=== PATIENT | male | born 1955 | race African-American/Black ===

== ENCOUNTER → 2018-06-28 | Outpatient (CLI) | payer OTHER ==
[~2018-06-28] MED LIST: DAYPRO600 M1 PO; VICODIN 500 MG-1 TAB PO
== END | disposition home or self-care (01) ==
LOC: RAD 11:18
DX: R10.30 Lower abdominal pain, unspecified (principal)

== ENCOUNTER → 2018-08-23 | Outpatient (CLI) | payer OTHER | END | disposition home or self-care (01) | LOC: LAB 11:01 | DX: C61 Malignant neoplasm of prostate (principal) ==

== ENCOUNTER 2018-11-08 09:44 | Emergency (ER) | payer OTHER ==
[~2018-11-08] VITALS: Ht 187.9 cm; Wt 99.8 kg
[2018-11-08 09:45] VITALS: BP 164/100
[2018-11-08 10:44] LABS: BASO # 0.1 10*3/uL (0.0-0.1); BASO % 0.8 % (0.0-1.0); EOS # 0.1 10*3/uL (0.0-0.4); EOS % 1.3 % (1.0-4.0); HEMATOCRIT 44.7 % (42.0-52.0); LYMPH # 2.9 10*3/uL (1.3-4.4); MEAN CELL VOLUME 89.4 fl (80.0-94.0); MEAN CORPUSCULAR HGB CONC 31.3 g/dl (33.0-37.0); MEAN PLATELET VOLUME 9.3 fl (9.6-12.3); MONO # 0.6 10*3/uL (0.1-1.0); MONO % 7.4 % (3.0-9.0); NEUT % 57.2 % (47.0-73.0); PLATELET COUNT AUTOMATED 316 10*3/uL (130-400); RED CELL DISTRI WIDTH 13.8 % (0-14.5); WHITE BLOOD COUNT 8.7 10*3/uL (4.8-10.8)
[2018-11-08 10:48] LABS: ALBUMIN 3.8 gm/dl (3.1-4.5); ALKALINE PHOSPHATASE 69 U/L (45-117); BUN 13 mg/dl (7-24); CHLORIDE 105 mmol/L (98-107); CREATININE 1.02 mg/dL (0.70-1.30); POTASSIUM 4.4 mmol/L (3.5-5.1); SGOT/AST 14 IU/L (3-35); SGPT/ALT 23 U/L (12-78); SODIUM 140 mmol/L (136-145); TOTAL PROTEIN 8.4 gm/dL (6.4-8.2)
[2018-11-08 11:03] LABS: BILIRUBIN NEGATIVE (NEGATIVE); BLOOD NEGATIVE (NEGATIVE); CLARITY CLEAR (CLEAR); COLOR YELLOW (YELLOW); GLUCOSE NEGATIVE (NEGATIVE); KETONE NEGATIVE (NEGATIVE); LEUKO ESTERASE NEGATIVE (NEGATIVE); NITRITE NEGATIVE (NEGATIVE); UROBILINOGEN 0.2 E.U./dl (0.2-1.0)
[2018-11-08 11:23] LABS: RBC 0-2 rbc/hpf (0-2); WBC 0-2 wbc/hpf (0-5)
[2018-11-08] MEDS ORDERED: PERCOCET 5-3251 EACH PO (13:22)
[2019-01-05] MEDS ORDERED: PROSCAR5 M1 PO (15:37)
[2019-01-05] MEDS ORDERED: EFFEXOR XR150 MG PO (15:38)
[2019-01-05] MEDS ORDERED: TAMSULOSIN HCL0.4 MG PO (15:38)
[2019-01-05] MEDS ORDERED: XANAX0.5 MG PO (15:39)
== END 2018-11-08 13:28 | disposition home or self-care (01) ==
LOC: ED 09:44
PROVIDERS: Nurse Practitioner Family
DX: R10.30 Lower abdominal pain, unspecified (principal); R30.9 Painful micturition, unspecified

== ENCOUNTER → 2018-12-06 | Outpatient (CLI) | payer OTHER ==
[~2018-12-06] MED LIST changes: +EFFEXOR XR150 MG PO; +PERCOCET 5-3251 EACH PO; +PROSCAR5 M1 PO; +TAMSULOSIN HCL0.4 MG PO; +XANAX0.5 MG PO
[2018-12-06 12:04] LABS: BASO # 0.1 10*3/uL (0.0-0.1); BASO % 1.1 % (0.0-1.0); EOS # 0.1 10*3/uL (0.0-0.4); EOS % 1.7 % (1.0-4.0); HEMATOCRIT 43.5 % (42.0-52.0); HEMOGLOBIN 13.9 g/dl (14.0-18.0); LYMPH # 3.1 10*3/uL (1.3-4.4); LYMPH % 43.2 % (27.0-41.0); MEAN CELL VOLUME 90.1 fl (80.0-94.0); MEAN CORPUSCULAR HGB 28.8 pg (27.0-31.0); MEAN PLATELET VOLUME 10.4 fl (9.6-12.3); MONO # 0.5 10*3/uL (0.1-1.0); MONO % 6.6 % (3.0-9.0); NEUT # 3.4 10*3/uL (2.3-7.9); NEUT % 47.1 % (47.0-73.0); PLATELET COUNT AUTOMATED 271 10*3/uL (130-400); RED BLOOD COUNT 4.83 10*6/uL (4.50-5.90); WHITE BLOOD COUNT 7.2 10*3/uL (4.8-10.8)
[2018-12-06 12:33] LABS: ALBUMIN 4.2 gm/dl (3.1-4.5); ALKALINE PHOSPHATASE 69 U/L (45-117); BUN 11 mg/dl (7-24); CHLORIDE 106 mmol/L (98-107); CREATININE 1.01 mg/dL (0.70-1.30); SGOT/AST 13 IU/L (3-35); SGPT/ALT 27 U/L (12-78); SODIUM 140 mmol/L (136-145); TOTAL PROTEIN 8.2 gm/dL (6.4-8.2)
[2018-12-07 09:08] LABS: PROSTATE SPECIFIC AG FREE <0.01 ng/mL; PROSTATE SPECIFIC AG, SERUM <0.1 ng/mL (0.0-4.0)
== END | disposition home or self-care (01) ==
LOC: LAB 11:24
PROVIDERS: Urology
DX: D40.0 Neoplasm of uncertain behavior of prostate (principal); R53.83 Other fatigue

== ENCOUNTER → 2019-02-08 | Outpatient (CLI) | payer OTHER ==
[2019-02-08 14:00] LABS: BASO # 0.1 10*3/uL (0.0-0.1); BASO % 0.8 % (0.0-1.0); EOS # 0.1 10*3/uL (0.0-0.4); HEMATOCRIT 39.7 % (42.0-52.0); HEMOGLOBIN 12.7 g/dl (14.0-18.0); LYMPH # 2.9 10*3/uL (1.3-4.4); LYMPH % 39.5 % (27.0-41.0); MEAN CELL VOLUME 91.1 fl (80.0-94.0); MEAN CORPUSCULAR HGB 29.1 pg (27.0-31.0); MONO # 0.6 10*3/uL (0.1-1.0); MONO % 8.6 % (3.0-9.0); NEUT # 3.7 10*3/uL (2.3-7.9); NEUT % 49.8 % (47.0-73.0); PLATELET COUNT AUTOMATED 237 10*3/uL (130-400); RED BLOOD COUNT 4.36 10*6/uL (4.50-5.90); RED CELL DISTRI WIDTH 13.4 % (0-14.5); WHITE BLOOD COUNT 7.4 10*3/uL (4.8-10.8)
[2019-02-08 14:14] LABS: ALBUMIN 3.5 gm/dl (3.1-4.5); ALKALINE PHOSPHATASE 78 U/L (45-117); BUN 14 mg/dl (7-24); CHLORIDE 111 mmol/L (98-107); CREATININE 1.14 mg/dL (0.70-1.30); POTASSIUM 4.3 mmol/L (3.5-5.1); SGOT/AST 18 IU/L (3-35); SGPT/ALT 23 U/L (12-78); SODIUM 141 mmol/L (136-145); TOTAL PROTEIN 7.6 gm/dL (6.4-8.2)
== END | disposition home or self-care (01) ==
LOC: LAB 13:18
PROVIDERS: Urology
DX: D40.0 Neoplasm of uncertain behavior of prostate (principal); I10 Essential (primary) hypertension; R53.83 Other fatigue

== ENCOUNTER → 2019-02-09 | Outpatient (CLI) | payer OTHER | END | disposition home or self-care (01) | LOC: US 02:54 | DX: N28.89 Other specified disorders of kidney and ureter (principal); N28.1 Cyst of kidney, acquired ==

== ENCOUNTER → 2019-04-11 | Outpatient (CLI) | payer OTHER ==
[2019-04-11 07:33] LABS: BASO # 0.1 10*3/uL (0.0-0.1); BASO % 0.8 % (0.0-1.0); EOS # 0.1 10*3/uL (0.0-0.4); EOS % 1.1 % (1.0-4.0); HEMATOCRIT 40.9 % (42.0-52.0); LYMPH # 2.4 10*3/uL (1.3-4.4); LYMPH % 28.9 % (27.0-41.0); MEAN CELL VOLUME 91.3 fl (80.0-94.0); MEAN CORPUSCULAR HGB CONC 31.8 g/dl (33.0-37.0); MEAN PLATELET VOLUME 9.7 fl (9.6-12.3); MONO # 0.6 10*3/uL (0.1-1.0); NEUT # 5.2 10*3/uL (2.3-7.9); NEUT % 61.8 % (47.0-73.0); PLATELET COUNT AUTOMATED 254 10*3/uL (130-400); RED BLOOD COUNT 4.48 10*6/uL (4.50-5.90); RED CELL DISTRI WIDTH 12.8 % (0-14.5); WHITE BLOOD COUNT 8.3 10*3/uL (4.8-10.8)
[2019-04-11 08:03] LABS: ALBUMIN 3.6 gm/dl (3.1-4.5); ALKALINE PHOSPHATASE 63 U/L (45-117); BUN 11 mg/dl (7-24); CHLORIDE 110 mmol/L (98-107); POTASSIUM 4.2 mmol/L (3.5-5.1); SGOT/AST 21 IU/L (3-35); SGPT/ALT 35 U/L (12-78); SODIUM 139 mmol/L (136-145); TOTAL PROTEIN 8.1 gm/dL (6.4-8.2)
== END | disposition home or self-care (01) ==
LOC: LAB 06:54
PROVIDERS: Urology
DX: C61 Malignant neoplasm of prostate (principal); I10 Essential (primary) hypertension; R53.83 Other fatigue

== ENCOUNTER → 2019-09-25 | Outpatient (CLI) | payer OTHER ==
[2019-09-25 07:39] LABS: BASO # 0.1 10*3/uL (0.0-0.1); BASO % 0.9 % (0.0-1.0); EOS # 0.1 10*3/uL (0.0-0.4); EOS % 1.5 % (1.0-4.0); HEMATOCRIT 39.7 % (42.0-52.0); HEMOGLOBIN 12.5 g/dl (14.0-18.0); LYMPH # 3.1 10*3/uL (1.3-4.4); MEAN CELL VOLUME 90.8 fl (80.0-94.0); MEAN CORPUSCULAR HGB 28.6 pg (27.0-31.0); MEAN CORPUSCULAR HGB CONC 31.5 g/dl (33.0-37.0); MEAN PLATELET VOLUME 9.7 fl (9.6-12.3); MONO # 0.5 10*3/uL (0.1-1.0); NEUT # 4.7 10*3/uL (2.3-7.9); NEUT % 55.1 % (47.0-73.0); PLATELET COUNT AUTOMATED 284 10*3/uL (130-400); RED BLOOD COUNT 4.37 10*6/uL (4.50-5.90); RED CELL DISTRI WIDTH 13.3 % (0-14.5); WHITE BLOOD COUNT 8.6 10*3/uL (4.8-10.8)
[2019-09-25 08:01] LABS: ALBUMIN 3.8 gm/dl (3.1-4.5); BUN 9 mg/dl (7-24); CHLORIDE 113 mmol/L (98-107); CREATININE 0.96 mg/dL (0.70-1.30); POTASSIUM 3.8 mmol/L (3.5-5.1); SGOT/AST 25 IU/L (3-35); SGPT/ALT 35 U/L (12-78); SODIUM 142 mmol/L (136-145); TOTAL PROTEIN 7.9 gm/dL (6.4-8.2)
[2019-09-25 08:02] LABS: ALKALINE PHOSPHATASE 55 U/L (45-117)
== END | disposition home or self-care (01) ==
LOC: LAB 06:54
PROVIDERS: Nurse Practitioner Family
DX: C61 Malignant neoplasm of prostate (principal); I10 Essential (primary) hypertension; R53.83 Other fatigue

== ENCOUNTER → 2019-10-23 | Outpatient (CLI) | payer OTHER | END | disposition home or self-care (01) | LOC: US 01:07 | DX: N28.1 Cyst of kidney, acquired (principal); C61 Malignant neoplasm of prostate ==

== ENCOUNTER → 2020-03-26 | Outpatient (CLI) | payer MEDICARE ==
[2020-03-26 08:57] LABS: BASO # 0.1 10*3/uL (0.0-0.1); BASO % 0.6 % (0.0-1.0); EOS % 0.4 % (1.0-4.0); HEMATOCRIT 38.4 % (42.0-52.0); LYMPH # 1.9 10*3/uL (1.3-4.4); LYMPH % 24.5 % (27.0-41.0); MEAN CELL VOLUME 89.7 fl (80.0-94.0); MEAN CORPUSCULAR HGB 28.7 pg (27.0-31.0); MEAN PLATELET VOLUME 9.7 fl (9.6-12.3); MONO # 0.5 10*3/uL (0.1-1.0); MONO % 6.6 % (3.0-9.0); NEUT # 5.3 10*3/uL (2.3-7.9); NEUT % 67.5 % (47.0-73.0); PLATELET COUNT AUTOMATED 238 10*3/uL (130-400); RED BLOOD COUNT 4.28 10*6/uL (4.50-5.90); RED CELL DISTRI WIDTH 13.2 % (0-14.5); WHITE BLOOD COUNT 7.9 10*3/uL (4.8-10.8)
[2020-03-26 09:19] LABS: ALBUMIN 3.7 gm/dl (3.1-4.5); ALKALINE PHOSPHATASE 59 U/L (45-117); BUN 11 mg/dl (7-24); CHLORIDE 110 mmol/L (98-107); CREATININE 1.01 mg/dL (0.70-1.30); POTASSIUM 3.6 mmol/L (3.5-5.1); SGOT/AST 28 IU/L (3-35); SGPT/ALT 35 U/L (12-78); SODIUM 139 mmol/L (136-145); TOTAL PROTEIN 8.2 gm/dL (6.4-8.2)
== END | disposition home or self-care (01) ==
LOC: LAB 08:04
PROVIDERS: Nurse Practitioner Family
DX: C61 Malignant neoplasm of prostate (principal)

== ENCOUNTER 2020-04-29 00:46 | Emergency (ER) | payer MEDICARE ==
[~2020-04-29] VITALS: Ht 187.9 cm; Wt 94.3 kg
[2020-04-29 01:58] VITALS: BP 143/98
== END 2020-04-29 02:02 | disposition home or self-care (01) ==
LOC: ED 00:46
DX: R42 Dizziness and giddiness (principal); Z79.899 Other long term (current) drug therapy

== ENCOUNTER → 2020-06-04 | Outpatient (CLI) | payer MEDICARE ==
[2020-06-04 12:03] LABS: BASO % 0.7 % (0.0-1.0); EOS # 0.1 10*3/uL (0.0-0.4); EOS % 1.9 % (1.0-4.0); HEMATOCRIT 37.3 % (42.0-52.0); LYMPH # 2.3 10*3/uL (1.3-4.4); MEAN CELL VOLUME 91.6 fl (80.0-94.0); MEAN CORPUSCULAR HGB 28.5 pg (27.0-31.0); MEAN CORPUSCULAR HGB CONC 31.1 g/dl (33.0-37.0); MEAN PLATELET VOLUME 9.9 fl (9.6-12.3); MONO # 0.4 10*3/uL (0.1-1.0); MONO % 6.6 % (3.0-9.0); NEUT # 2.9 10*3/uL (2.3-7.9); NEUT % 50.5 % (47.0-73.0); PLATELET COUNT AUTOMATED 249 10*3/uL (130-400); RED BLOOD COUNT 4.07 10*6/uL (4.50-5.90); WHITE BLOOD COUNT 5.8 10*3/uL (4.8-10.8)
[2020-06-04 12:30] LABS: CHLORIDE 111 mmol/L (98-107); SODIUM 134 mmol/L (136-145)
[2020-06-04 12:48] LABS: ALBUMIN 3.6 gm/dl (3.1-4.5); ALKALINE PHOSPHATASE 55 U/L (45-117); BUN 11 mg/dl (7-24); CREATININE 0.92 mg/dL (0.70-1.30); SGOT/AST 14 IU/L (3-35); SGPT/ALT 19 U/L (12-78); TOTAL PROTEIN 7.7 gm/dL (6.4-8.2)
== END | disposition home or self-care (01) ==
LOC: LAB 10:54
PROVIDERS: Urology
DX: C61 Malignant neoplasm of prostate (principal); R53.83 Other fatigue

== ENCOUNTER → 2020-09-19 | Outpatient (CLI) | payer OTHER ==
[2020-09-19 08:08] LABS: BASO # 0.1 10*3/uL (0.0-0.1); BASO % 0.8 % (0.0-1.0); EOS # 0.1 10*3/uL (0.0-0.4); EOS % 0.7 % (1.0-4.0); LYMPH # 2.4 10*3/uL (1.3-4.4); LYMPH % 28.3 % (27.0-41.0); MEAN CELL VOLUME 88.9 fl (80.0-94.0); MEAN CORPUSCULAR HGB 27.3 pg (27.0-31.0); MEAN CORPUSCULAR HGB CONC 30.8 g/dl (33.0-37.0); MEAN PLATELET VOLUME 9.6 fl (9.6-12.3); MONO # 0.6 10*3/uL (0.1-1.0); MONO % 6.5 % (3.0-9.0); NEUT # 5.5 10*3/uL (2.3-7.9); NEUT % 63.4 % (47.0-73.0); PLATELET COUNT AUTOMATED 263 10*3/uL (130-400); RED CELL DISTRI WIDTH 13.4 % (0-14.5); WHITE BLOOD COUNT 8.6 10*3/uL (4.8-10.8)
[2020-09-19 08:26] LABS: ALBUMIN 3.5 gm/dl (3.1-4.5); ALKALINE PHOSPHATASE 56 U/L (45-117); BUN 12 mg/dl (7-24); CHLORIDE 112 mmol/L (98-107); CREATININE 1.14 mg/dL (0.70-1.30); POTASSIUM 4.3 mmol/L (3.5-5.1); SGOT/AST 17 IU/L (3-35); SGPT/ALT 21 U/L (12-78); SODIUM 138 mmol/L (136-145); TOTAL PROTEIN 7.8 gm/dL (6.4-8.2)
== END | disposition home or self-care (01) ==
LOC: LAB 07:10
PROVIDERS: ATTEND Urology
DX: C61 Malignant neoplasm of prostate (principal); R53.83 Other fatigue

== ENCOUNTER → 2020-11-04 | Outpatient (CLI) | payer OTHER ==
[2020-11-04 13:33] LABS: BASO # 0.1 10*3/uL (0.0-0.1); BASO % 0.7 % (0.0-1.0); EOS # 0.1 10*3/uL (0.0-0.4); EOS % 1.7 % (1.0-4.0); HEMATOCRIT 38.8 % (42.0-52.0); LYMPH # 2.5 10*3/uL (1.3-4.4); MEAN CELL VOLUME 88.8 fl (80.0-94.0); MEAN CORPUSCULAR HGB 27.5 pg (27.0-31.0); MEAN CORPUSCULAR HGB CONC 30.9 g/dl (33.0-37.0); MEAN PLATELET VOLUME 9.5 fl (9.6-12.3); MONO # 0.5 10*3/uL (0.1-1.0); MONO % 6.4 % (3.0-9.0); NEUT # 4.1 10*3/uL (2.3-7.9); NEUT % 56.1 % (47.0-73.0); PLATELET COUNT AUTOMATED 281 10*3/uL (130-400); RED BLOOD COUNT 4.37 10*6/uL (4.50-5.90); RED CELL DISTRI WIDTH 13.4 % (0-14.5); WHITE BLOOD COUNT 7.2 10*3/uL (4.8-10.8)
[2020-11-04 13:55] LABS: BILIRUBIN Negative (Negative); BLOOD Negative (Negative); CLARITY Clear (Clear); COLOR Yellow (Yellow); GLUCOSE Negative (Negative); KETONE Trace (Negative); LEUKO ESTERASE Negative (Negative); NITRITE Negative (Negative); SPECIFIC GRAVITY 1.025 (1.001-1.030); UROBILINOGEN 0.2 E.U./dl (0.0-1.0)
[2020-11-04 14:02] LABS: ALBUMIN 3.6 gm/dl (3.1-4.5); ALKALINE PHOSPHATASE 73 U/L (45-117); BUN 15 mg/dl (7-24); CHLORIDE 110 mmol/L (98-107); CREATININE 1.14 mg/dL (0.70-1.30); POTASSIUM 3.7 mmol/L (3.5-5.1); SGOT/AST 14 IU/L (3-35); SGPT/ALT 21 U/L (12-78); SODIUM 139 mmol/L (136-145); TOTAL PROTEIN 7.7 gm/dL (6.4-8.2)
[2020-11-04 14:44] LABS: RBC 0-2 rbc/hpf (0-2)
[2020-11-04 14:45] LABS: BACTERIA TRACE; CALCIUM OXALATE CRYSTALS Trace; EPITHELIAL CELLS 0-2; WBC 0-2 wbc/hpf (0-5)
== END | disposition home or self-care (01) ==
LOC: LAB 12:29 → CT 13:00
PROVIDERS: ATTEND Urology
DX: C61 Malignant neoplasm of prostate (principal); R42 Dizziness and giddiness

== ENCOUNTER → 2020-11-06 | Outpatient (CLI) | payer OTHER | END | disposition home or self-care (01) | LOC: NM 10:00 | PROVIDERS: ATTEND Urology | DX: C61 Malignant neoplasm of prostate (principal) ==

== ENCOUNTER → 2020-11-24 | Outpatient (CLI) | payer OTHER | END | disposition home or self-care (01) | LOC: LAB 10:03 | PROVIDERS: ATTEND Urology | DX: C61 Malignant neoplasm of prostate (principal) ==

== ENCOUNTER → 2020-11-25 | Outpatient (CLI) | payer OTHER | END | disposition home or self-care (01) | LOC: CT 00:14 | PROVIDERS: ATTEND Urology | DX: D17.79 Benign lipomatous neoplasm of other sites (principal); C61 Malignant neoplasm of prostate ==

== ENCOUNTER → 2021-01-06 | Outpatient (CLI) | payer OTHER ==
[2021-01-06 12:48] LABS: BASO % 0.2 % (0.0-1.0); HEMATOCRIT 38.7 % (42.0-52.0); LYMPH # 2.3 10*3/uL (1.3-4.4); LYMPH % 38.5 % (27.0-41.0); MEAN CELL VOLUME 89.6 fl (80.0-94.0); MEAN CORPUSCULAR HGB 28.7 pg (27.0-31.0); MEAN PLATELET VOLUME 9.6 fl (9.6-12.3); MONO # 0.4 10*3/uL (0.1-1.0); MONO % 7.5 % (3.0-9.0); NEUT # 3.1 10*3/uL (2.3-7.9); NEUT % 53.5 % (47.0-73.0); PLATELET COUNT AUTOMATED 223 10*3/uL (130-400); RED BLOOD COUNT 4.32 10*6/uL (4.50-5.90); RED CELL DISTRI WIDTH 13.2 % (0-14.5); RETICULOCYTE % 1.72 % (0.50-2.50); WHITE BLOOD COUNT 5.8 10*3/uL (4.8-10.8)
[2021-01-06 13:11] LABS: ALBUMIN 3.8 gm/dl (3.1-4.5); ALKALINE PHOSPHATASE 63 U/L (45-117); BUN 11 mg/dl (7-24); CHLORIDE 111 mmol/L (98-107); CREATININE 1.03 mg/dL (0.70-1.30); IRON 78 ug/dL (65-175); LDH 183 U/L (87-241); POTASSIUM 4.2 mmol/L (3.5-5.1); SGOT/AST 16 IU/L (3-35); SGPT/ALT 22 U/L (12-78); SODIUM 141 mmol/L (136-145); TOTAL IRON BINDING CAPACITY 293 ug/dl (250-450); TOTAL PROTEIN 7.7 gm/dL (6.4-8.2)
[2021-01-06 15:53] LABS: FERRITIN 703.5 ng/mL (22.0-322.0)
== END | disposition home or self-care (01) ==
LOC: LAB 12:23
PROVIDERS: Internal Medicine Hematology & Oncology; ATTEND Urology
DX: Z12.5 Encounter for screening for malignant neoplasm of prostate (principal); C61 Malignant neoplasm of prostate; R53.83 Other fatigue; N18.9 Chronic kidney disease, unspecified; D63.1 Anemia in chronic kidney disease; R97.20 Elevated prostate specific antigen [PSA]; Z19.1 Hormone sensitive malignancy status

== ENCOUNTER 2021-01-26 09:37 | Emergency (ER) | payer OTHER ==
[~2021-01-26] VITALS: Wt 96.6 kg
[2021-01-26 09:47] VITALS: BP 158/96
[2021-01-26] MEDS ORDERED: PERCOCET 5-3251 EACH PO (12:36)
== END 2021-01-26 13:20 | disposition home or self-care (01) ==
LOC: ED 09:37
DX: S22.41XA Multiple fractures of ribs, right side, initial encounter for closed fracture (principal); S42.031A Displaced fracture of lateral end of right clavicle, initial encounter for closed fracture; S42.011A Anterior displaced fracture of sternal end of right clavicle, initial encounter for closed fracture; F41.9 Anxiety disorder, unspecified; F32.9 Major depressive disorder, single episode, unspecified; Z85.46 Personal history of malignant neoplasm of prostate; Z85.118 Personal history of other malignant neoplasm of bronchus and lung; Z85.528 Personal history of other malignant neoplasm of kidney; Z79.899 Other long term (current) drug therapy; Z98.890 Other specified postprocedural states; W10.8XXA Fall (on) (from) other stairs and steps, initial encounter; Y93.89 Activity, other specified; Y92.89 Other specified places as the place of occurrence of the external cause; Y99.8 Other external cause status

== ENCOUNTER → 2021-02-16 | Outpatient (CLI) | payer OTHER ==
[2021-02-16 10:06] LABS: BASO % 0.4 % (0.0-1.0); HEMATOCRIT 43.6 % (42.0-52.0); LYMPH # 2.2 10*3/uL (1.3-4.4); MEAN CELL VOLUME 92.2 fl (80.0-94.0); MEAN CORPUSCULAR HGB 28.5 pg (27.0-31.0); MEAN PLATELET VOLUME 9.7 fl (9.6-12.3); MONO # 0.5 10*3/uL (0.1-1.0); MONO % 7.2 % (3.0-9.0); NEUT # 4.6 10*3/uL (2.3-7.9); PLATELET COUNT AUTOMATED 250 10*3/uL (130-400); RED BLOOD COUNT 4.73 10*6/uL (4.50-5.90); RED CELL DISTRI WIDTH 13.7 % (0-14.5); RETICULOCYTE % 1.28 % (0.50-2.50); WHITE BLOOD COUNT 7.5 10*3/uL (4.8-10.8)
[2021-02-16 10:54] LABS: FERRITIN 581.5 ng/mL (22.0-322.0)
[2021-02-16 10:57] LABS: ALBUMIN 4.2 gm/dl (3.1-4.5); ALKALINE PHOSPHATASE 94 U/L (45-117); BUN 13 mg/dl (7-24); CHLORIDE 110 mmol/L (98-107); CREATININE 0.97 mg/dL (0.70-1.30); IRON 164 ug/dL (65-175); LDH 200 U/L (87-241); POTASSIUM 4.2 mmol/L (3.5-5.1); SGOT/AST 15 IU/L (3-35); SGPT/ALT 18 U/L (12-78); SODIUM 140 mmol/L (136-145); TOTAL IRON BINDING CAPACITY 318 ug/dl (250-450); TOTAL PROTEIN 7.4 gm/dL (6.4-8.2); URIC ACID 3.2 mg/dL (3.5-7.2)
== END | disposition home or self-care (01) ==
LOC: LAB 09:28
PROVIDERS: Internal Medicine Hematology & Oncology; ATTEND Urology
DX: C61 Malignant neoplasm of prostate (principal); I12.9 Hypertensive chronic kidney disease with stage 1 through stage 4 chronic kidney disease, or unspecified chronic kidney disease; N18.9 Chronic kidney disease, unspecified; D63.1 Anemia in chronic kidney disease; R97.20 Elevated prostate specific antigen [PSA]; R53.83 Other fatigue

== ENCOUNTER → 2021-05-22 | Outpatient (CLI) | payer OTHER ==
[2021-05-24 08:07] LABS: PROSTATE SPECIFIC AG FREE 0.04 ng/mL; PROSTATE SPECIFIC AG, SERUM 0.4 ng/mL (0.0-4.0)
== END | disposition home or self-care (01) ==
LOC: LAB 09:19
PROVIDERS: ATTEND Urology
DX: C61 Malignant neoplasm of prostate (principal)

== ENCOUNTER → 2021-08-17 | Outpatient (CLI) | payer OTHER ==
[2021-08-17 13:54] LABS: BASO # 0.1 10*3/uL (0.0-0.1); BASO % 0.6 % (0.0-1.0); HEMATOCRIT 39.7 % (42.0-52.0); LYMPH # 2.8 10*3/uL (1.3-4.4); LYMPH % 32.1 % (27.0-41.0); MEAN CELL VOLUME 91.7 fl (80.0-94.0); MEAN CORPUSCULAR HGB 29.6 pg (27.0-31.0); MEAN CORPUSCULAR HGB CONC 32.2 g/dl (33.0-37.0); MEAN PLATELET VOLUME 9.6 fl (9.6-12.3); MONO # 0.6 10*3/uL (0.1-1.0); MONO % 7.4 % (3.0-9.0); NEUT # 5.1 10*3/uL (2.3-7.9); NEUT % 59.3 % (47.0-73.0); PLATELET COUNT AUTOMATED 239 10*3/uL (130-400); RED BLOOD COUNT 4.33 10*6/uL (4.50-5.90); RED CELL DISTRI WIDTH 12.5 % (0-14.5); WHITE BLOOD COUNT 8.6 10*3/uL (4.8-10.8)
[2021-08-17 14:13] LABS: ALBUMIN 3.8 gm/dl (3.1-4.5); BUN 10 mg/dl (7-24); CHLORIDE 109 mmol/L (98-107); CREATININE 1.06 mg/dL (0.70-1.30); LDH 165 U/L (87-241); POTASSIUM 3.9 mmol/L (3.5-5.1); SGOT/AST 12 IU/L (3-35); SGPT/ALT 17 U/L (12-78); SODIUM 141 mmol/L (136-145); TOTAL PROTEIN 7.8 gm/dL (6.4-8.2); URIC ACID 4.3 mg/dL (3.5-7.2)
[2021-08-17 14:14] LABS: ALKALINE PHOSPHATASE 69 U/L (45-117)
== END | disposition home or self-care (01) ==
LOC: LAB 13:39
PROVIDERS: ATTEND Internal Medicine Hematology & Oncology
DX: Z12.5 Encounter for screening for malignant neoplasm of prostate (principal); C61 Malignant neoplasm of prostate; Z19.1 Hormone sensitive malignancy status; R97.20 Elevated prostate specific antigen [PSA]; Z79.818 Long term (current) use of other agents affecting estrogen receptors and estrogen levels

== ENCOUNTER → 2021-12-10 | Outpatient (CLI) | payer OTHER | END | disposition home or self-care (01) | LOC: RAD 07:42 | PROVIDERS: ATTEND Urology | DX: M25.511 Pain in right shoulder (principal) ==

== ENCOUNTER → 2022-11-30 | Outpatient (CLI) | payer OTHER ==
[2022-11-30 09:02] LABS: BASO % 0.5 % (0.0-1.0); EOS # 0.1 10*3/uL (0.0-0.4); EOS % 0.8 % (1.0-4.0); LYMPH # 2.3 10*3/uL (1.3-4.4); LYMPH % 29.6 % (27.0-41.0); MEAN CELL VOLUME 89.4 fl (80.0-94.0); MEAN CORPUSCULAR HGB 28.7 pg (27.0-31.0); MEAN CORPUSCULAR HGB CONC 32.1 g/dl (33.0-37.0); MEAN PLATELET VOLUME 9.7 fl (9.6-12.3); MONO # 0.5 10*3/uL (0.1-1.0); NEUT # 4.9 10*3/uL (2.3-7.9); NEUT % 62.8 % (47.0-73.0); PLATELET COUNT AUTOMATED 231 10*3/uL (130-400); RED BLOOD COUNT 4.81 10*6/uL (4.50-5.90); RED CELL DISTRI WIDTH 13.2 % (0-14.5); WHITE BLOOD COUNT 7.8 10*3/uL (4.8-10.8)
[2022-11-30 09:22] LABS: ALKALINE PHOSPHATASE 67 U/L (46-116); BUN 12 mg/dl (9-23); CHLORIDE 106 mmol/L (98-107); POTASSIUM 3.9 mmol/L (3.4-5.1); TOTAL PROTEIN 7.4 gm/dL (6.0-8.0)
[2022-11-30 09:35] LABS: SGPT/ALT < 7 U/L (10-49)
== END | disposition home or self-care (01) ==
LOC: LAB 08:38
PROVIDERS: ATTEND Urology
DX: D40.0 Neoplasm of uncertain behavior of prostate (principal); R53.83 Other fatigue

== ENCOUNTER → 2022-12-31 | Outpatient (CLI) | payer OTHER ==
[2022-12-31 09:56] LABS: BASO # 0.1 10*3/uL (0.0-0.1); BASO % 0.7 % (0.0-1.0); EOS # 0.1 10*3/uL (0.0-0.4); EOS % 0.8 % (1.0-4.0); HEMATOCRIT 41.1 % (42.0-52.0); LYMPH # 2.1 10*3/uL (1.3-4.4); LYMPH % 28.4 % (27.0-41.0); MEAN CELL VOLUME 91.7 fl (80.0-94.0); MEAN CORPUSCULAR HGB CONC 31.6 g/dl (33.0-37.0); MEAN PLATELET VOLUME 9.8 fl (9.6-12.3); MONO # 0.5 10*3/uL (0.1-1.0); MONO % 6.3 % (3.0-9.0); NEUT # 4.8 10*3/uL (2.3-7.9); NEUT % 63.4 % (47.0-73.0); PLATELET COUNT AUTOMATED 240 10*3/uL (130-400); RED BLOOD COUNT 4.48 10*6/uL (4.50-5.90); RED CELL DISTRI WIDTH 13.2 % (0-14.5); WHITE BLOOD COUNT 7.5 10*3/uL (4.8-10.8)
[2022-12-31 10:12] LABS: ALKALINE PHOSPHATASE 68 U/L (46-116); BUN 16 mg/dl (9-23); CHLORIDE 111 mmol/L (98-107); POTASSIUM 4.5 mmol/L (3.4-5.1); SGPT/ALT 7 U/L (10-49); TOTAL PROTEIN 7.1 gm/dL (6.0-8.0)
== END | disposition home or self-care (01) ==
LOC: LAB 09:39
PROVIDERS: ATTEND Urology
DX: C61 Malignant neoplasm of prostate (principal)

== ENCOUNTER 2023-10-28 01:32 | Emergency (ER) | payer OTHER ==
[~2023-10-28] VITALS: Ht 190.5 cm; Wt 103.5 kg
[2023-10-28 02:15] LABS: BASO % 0.3 % (0.0-1.0); EOS # 0.1 10*3/uL (0.0-0.4); EOS % 0.6 % (1.0-4.0); HEMATOCRIT 35.2 % (42.0-52.0); LYMPH % 9.1 % (27.0-41.0); MEAN CELL VOLUME 89.3 fl (80.0-94.0); MEAN CORPUSCULAR HGB 28.2 pg (27.0-31.0); MEAN CORPUSCULAR HGB CONC 31.5 g/dl (33.0-37.0); MEAN PLATELET VOLUME 9.3 fl (9.6-12.3); MONO # 0.6 10*3/uL (0.1-1.0); NEUT # 8.8 10*3/uL (2.3-7.9); NEUT % 83.8 % (47.0-73.0); PLATELET COUNT AUTOMATED 211 10*3/uL (130-400); RED BLOOD COUNT 3.94 10*6/uL (4.50-5.90); RED CELL DISTRI WIDTH 13.1 % (0-14.5); WHITE BLOOD COUNT 10.5 10*3/uL (4.8-10.8)
[2023-10-28 02:26] LABS: ACT PARTIAL THROMBO TIME 28.8 SECONDS (20.0-32.1)
[2023-10-28] MEDS ORDERED: BACTRIM 400-801 EACH PO (02:27)
[2023-10-28] MEDS ORDERED: HORIZANT600 M1 PO (02:28)
[2023-10-28] MEDS ORDERED: ERLEADA60 MG PO (02:29)
[2023-10-28 02:30] LABS: BILIRUBIN Negative (Negative); BLOOD 3+ (Negative); CLARITY Clear (Clear); COLOR Yellow (Yellow); GLUCOSE Negative (Negative); KETONE Negative (Negative); LEUKO ESTERASE 1+ (Negative); NITRITE Negative (Negative); SPECIFIC GRAVITY 1.015 (1.001-1.030); UROBILINOGEN 0.2 E.U./dl (0.0-1.0)
[2023-10-28] MEDS ORDERED: TRAMADOL HCL50 MG PO (02:30)
[2023-10-28] MEDS ORDERED: PROVERA10 MG PO (02:30)
[2023-10-28 02:35] LABS: ALKALINE PHOSPHATASE 57 U/L (46-116); BUN 10 mg/dl (9-23); CHLORIDE 104 mmol/L (98-107); LIPASE 29 U/L (12-53); POTASSIUM 3.5 mmol/L (3.4-5.1); TOTAL PROTEIN 6.9 gm/dL (6.0-8.0)
[2023-10-28 02:36] LABS: SGPT/ALT < 7 U/L (5-49)
[2023-10-28 02:38] LABS: BACTERIA 1+; RBC 41-50 rbc/hpf (0-2)
[2023-10-28] MEDS ORDERED: CIPRO500 MG PO (02:49)
[2023-10-28 03:31] VITALS: BP 140/62
== END 2023-10-28 03:30 | disposition home or self-care (01) ==
LOC: ED 01:32
PROVIDERS: Internal Medicine
DX: R33.9 Retention of urine, unspecified (principal); R10.2 Pelvic and perineal pain; Z98.890 Other specified postprocedural states

== ENCOUNTER 2023-11-06 05:55 | Emergency (ER) | payer OTHER ==
[~2023-11-06] VITALS: Ht 187.9 cm; Wt 99.8 kg
[~2023-11-06 05:55] MED LIST changes: +BACTRIM 400-801 EACH PO; +CIPRO500 MG PO; +ERLEADA60 MG PO; +HORIZANT600 M1 PO; +PROVERA10 MG PO; +TRAMADOL HCL50 MG PO
[2023-11-06 07:19] VITALS: BP 121/90
[2023-11-06] MEDS ORDERED: ZYRTEC10 M2 PO (07:32)
[2023-11-06] MEDS ORDERED: PREDNISONE50 MG PO (07:32)
[2023-11-06] MEDS ORDERED: BENADRYL ALLERG25 M5 PO (07:32)
== END 2023-11-06 07:43 | disposition home or self-care (01) ==
LOC: ED 05:55
DX: L50.8 Other urticaria (principal); F41.9 Anxiety disorder, unspecified; F32.A Depression, unspecified; Z88.1 Allergy status to other antibiotic agents; Z98.890 Other specified postprocedural states

== ENCOUNTER 2023-12-15 06:49 | Emergency (ER) | payer OTHER ==
[~2023-12-15] VITALS: Wt 98.4 kg
[~2023-12-15 06:49] MED LIST changes: +BENADRYL ALLERG25 M5 PO; +PREDNISONE50 MG PO; +ZYRTEC10 M2 PO
[2023-12-15 07:14] VITALS: BP 141/101
[2023-12-15] MEDS ORDERED: Acetaminophen/Hydrocodone 5 MG/325 MG TABLET PO ONE (07:30)
[2023-12-15] MEDS ORDERED: Dexamethasone Sodium Phospha 20 MG/5 ML VIAL IV ONE (07:30)
[2023-12-15] MEDS ORDERED: Dexamethasone Sodium Phospha 20 MG/5 ML VIAL IM ONE (07:30)
[2023-12-15] MEDS ORDERED: Cyclobenzaprine Hydrochlorid 10 MG TAB PO ONE (07:30)
[2023-12-15 07:44] LABS: BASO # 0.1 10*3/uL (0.0-0.1); BASO % 0.6 % (0.0-1.0); EOS # 0.1 10*3/uL (0.0-0.4); EOS % 0.8 % (1.0-4.0); HEMATOCRIT 41.5 % (42.0-52.0); LYMPH # 2.6 10*3/uL (1.3-4.4); LYMPH % 25.4 % (27.0-41.0); MEAN CELL VOLUME 89.8 fl (80.0-94.0); MEAN CORPUSCULAR HGB 28.4 pg (27.0-31.0); MEAN CORPUSCULAR HGB CONC 31.6 g/dl (33.0-37.0); MEAN PLATELET VOLUME 9.6 fl (9.6-12.3); MONO # 0.7 10*3/uL (0.1-1.0); MONO % 7.2 % (3.0-9.0); NEUT # 6.8 10*3/uL (2.3-7.9); NEUT % 65.7 % (47.0-73.0); PLATELET COUNT AUTOMATED 272 10*3/uL (130-400); RED BLOOD COUNT 4.62 10*6/uL (4.50-5.90); RED CELL DISTRI WIDTH 13.4 % (0-14.5); WHITE BLOOD COUNT 10.3 10*3/uL (4.8-10.8)
[2023-12-15 07:55] LABS: ACT PARTIAL THROMBO TIME 27.3 SECONDS (20.0-32.1)
[2023-12-15 08:01] LABS: ALKALINE PHOSPHATASE 66 U/L (46-116); BUN 10 mg/dl (9-23); CHLORIDE 109 mmol/L (98-107); LIPASE 32 U/L (12-53); POTASSIUM 3.7 mmol/L (3.4-5.1); SGPT/ALT 7 U/L (5-49); TOTAL PROTEIN 7.3 gm/dL (6.0-8.0)
[2023-12-15 08:14] LABS: BILIRUBIN Negative (Negative); BLOOD Negative (Negative); CLARITY Clear (Clear); COLOR Yellow (Yellow); GLUCOSE Negative (Negative); KETONE Negative (Negative); LEUKO ESTERASE Negative (Negative); NITRITE Negative (Negative); PH 5.5 (4.5-8.0); SPECIFIC GRAVITY 1.015 (1.001-1.030); UROBILINOGEN 0.2 E.U./dl (0.0-1.0)
[2023-12-15] MEDS ORDERED: HYDROCODONE-AC1 EAC1 PO (09:07)
[2023-12-15] MEDS ORDERED: CYCLOBENZAPRINE10 MG PO (09:07)
[2023-12-15] MEDS ORDERED: PREDNISONE50 MG PO (09:07)
== END 2023-12-15 09:12 | disposition home or self-care (01) ==
LOC: ED 06:49
PROVIDERS: Internal Medicine
DX: M54.41 Lumbago with sciatica, right side (principal); M25.551 Pain in right hip; R10.2 Pelvic and perineal pain; F41.9 Anxiety disorder, unspecified; F32.A Depression, unspecified; Z88.1 Allergy status to other antibiotic agents; Z98.890 Other specified postprocedural states

== ENCOUNTER → 2023-12-20 | Outpatient (CLI) | payer OTHER ==
[~2023-12-20] MED LIST changes: +CYCLOBENZAPRINE10 MG PO; +HYDROCODONE-AC1 EAC1 PO
[2023-12-20 16:11] LABS: BASO % 0.3 % (0.0-1.0); EOS % 0.3 % (1.0-4.0); HEMATOCRIT 43.2 % (42.0-52.0); LYMPH # 2.5 10*3/uL (1.3-4.4); LYMPH % 19.9 % (27.0-41.0); MEAN CELL VOLUME 89.8 fl (80.0-94.0); MEAN CORPUSCULAR HGB 28.1 pg (27.0-31.0); MEAN CORPUSCULAR HGB CONC 31.3 g/dl (33.0-37.0); MONO # 0.6 10*3/uL (0.1-1.0); MONO % 5.1 % (3.0-9.0); NEUT # 9.2 10*3/uL (2.3-7.9); NEUT % 73.9 % (47.0-73.0); PLATELET COUNT AUTOMATED 273 10*3/uL (130-400); RED BLOOD COUNT 4.81 10*6/uL (4.50-5.90); RED CELL DISTRI WIDTH 13.5 % (0-14.5); WHITE BLOOD COUNT 12.5 10*3/uL (4.8-10.8)
[2023-12-20 16:33] LABS: ALKALINE PHOSPHATASE 71 U/L (46-116); BUN 15 mg/dl (9-23); CHLORIDE 106 mmol/L (98-107); POTASSIUM 4.2 mmol/L (3.4-5.1); SGPT/ALT 17 U/L (5-49); TOTAL PROTEIN 7.2 gm/dL (6.0-8.0)
== END | disposition home or self-care (01) ==
LOC: LAB 15:50
PROVIDERS: ATTEND Student in an Organized Health Care Education/Training Program
DX: Z51.11 Encounter for antineoplastic chemotherapy (principal); I10 Essential (primary) hypertension; R97.20 Elevated prostate specific antigen [PSA]; Z79.818 Long term (current) use of other agents affecting estrogen receptors and estrogen levels

== ENCOUNTER → 2023-12-26 | Outpatient (CLI) | payer OTHER ==
[2023-12-26 13:42] LABS: HEMATOCRIT 41.3 % (42.0-52.0); MEAN CELL VOLUME 91.6 fl (80.0-94.0); MEAN CORPUSCULAR HGB 27.7 pg (27.0-31.0); MEAN CORPUSCULAR HGB CONC 30.3 g/dl (33.0-37.0); MEAN PLATELET VOLUME 10.3 fl (9.6-12.3); PLATELET COUNT AUTOMATED 196 10*3/uL (130-400); RED BLOOD COUNT 4.51 10*6/uL (4.50-5.90); RED CELL DISTRI WIDTH 13.3 % (0-14.5); WHITE BLOOD COUNT 7.5 10*3/uL (4.8-10.8)
[2023-12-26 13:44] LABS: MANUAL DIFF REFLEX YES
[2023-12-26 14:10] LABS: BASOPHILS 1 % (0-1); TOTAL CELLS COUNTED 100 #CELLS
[2023-12-26 14:11] LABS: ALKALINE PHOSPHATASE 95 U/L (46-116); BUN 7 mg/dl (9-23); BURR CELLS FEW; CHLORIDE 111 mmol/L (98-107); PLATELET SUFFICIENCY NORMAL (NORMAL); POTASSIUM 4.5 mmol/L (3.4-5.1); SGPT/ALT 11 U/L (5-49); TOTAL PROTEIN 6.9 gm/dL (6.0-8.0)
== END | disposition home or self-care (01) ==
LOC: LAB 13:12
PROVIDERS: ATTEND Student in an Organized Health Care Education/Training Program
DX: Z51.11 Encounter for antineoplastic chemotherapy (principal); I10 Essential (primary) hypertension; R97.20 Elevated prostate specific antigen [PSA]; Z79.818 Long term (current) use of other agents affecting estrogen receptors and estrogen levels

== ENCOUNTER → 2024-01-02 | Outpatient (CLI) | payer OTHER ==
[2024-01-02 14:53] LABS: HEMATOCRIT 44.1 % (42.0-52.0); MEAN CELL VOLUME 91.5 fl (80.0-94.0); MEAN CORPUSCULAR HGB 28.2 pg (27.0-31.0); MEAN CORPUSCULAR HGB CONC 30.8 g/dl (33.0-37.0); MEAN PLATELET VOLUME 9.1 fl (9.6-12.3); NUCLEATED RED BLOOD CELL 0.1 % (0.0-0.0); PLATELET COUNT AUTOMATED 193 10*3/uL (130-400); RED BLOOD COUNT 4.82 10*6/uL (4.50-5.90); RED CELL DISTRI WIDTH 14.4 % (0-14.5); WHITE BLOOD COUNT 18.2 10*3/uL (4.8-10.8)
[2024-01-02 14:57] LABS: MANUAL DIFF REFLEX YES
[2024-01-02 15:24] LABS: ALKALINE PHOSPHATASE 106 U/L (46-116); BUN 11 mg/dl (9-23); CHLORIDE 107 mmol/L (98-107); POTASSIUM 4.4 mmol/L (3.4-5.1); SGPT/ALT 21 U/L (5-49); TOTAL PROTEIN 7.4 gm/dL (6.0-8.0)
[2024-01-02 15:27] LABS: BASOPHILS 1 % (0-1); PLATELET SUFFICIENCY NORMAL (NORMAL); TOTAL CELLS COUNTED 100 #CELLS
== END | disposition home or self-care (01) ==
LOC: LAB 01:18
PROVIDERS: ATTEND Student in an Organized Health Care Education/Training Program
DX: Z51.11 Encounter for antineoplastic chemotherapy (principal); I10 Essential (primary) hypertension; R97.20 Elevated prostate specific antigen [PSA]; Z79.818 Long term (current) use of other agents affecting estrogen receptors and estrogen levels

== ENCOUNTER → 2024-01-09 | Outpatient (CLI) | payer OTHER ==
[2024-01-09 16:04] LABS: BASO # 0.1 10*3/uL (0.0-0.1); BASO % 0.5 % (0.0-1.0); HEMATOCRIT 41.7 % (42.0-52.0); LYMPH # 1.6 10*3/uL (1.3-4.4); LYMPH % 12.2 % (27.0-41.0); MEAN CELL VOLUME 93.9 fl (80.0-94.0); MEAN CORPUSCULAR HGB 28.6 pg (27.0-31.0); MEAN CORPUSCULAR HGB CONC 30.5 g/dl (33.0-37.0); MEAN PLATELET VOLUME 9.8 fl (9.6-12.3); MONO # 0.6 10*3/uL (0.1-1.0); MONO % 4.5 % (3.0-9.0); NEUT # 10.7 10*3/uL (2.3-7.9); NEUT % 82.2 % (47.0-73.0); PLATELET COUNT AUTOMATED 264 10*3/uL (130-400); RED BLOOD COUNT 4.44 10*6/uL (4.50-5.90); RED CELL DISTRI WIDTH 14.5 % (0-14.5)
[2024-01-09 16:22] LABS: ALKALINE PHOSPHATASE 74 U/L (46-116); BUN 13 mg/dl (9-23); CHLORIDE 105 mmol/L (98-107); POTASSIUM 4.1 mmol/L (3.4-5.1); SGPT/ALT 21 U/L (5-49); TOTAL PROTEIN 7.4 gm/dL (6.0-8.0)
[2024-01-10 08:10] LABS: PSA, ULTRASENSITIVE 4.37 ng/mL (0.000-4.000)
== END | disposition home or self-care (01) ==
LOC: LAB 00:28
PROVIDERS: ATTEND Student in an Organized Health Care Education/Training Program
DX: Z51.11 Encounter for antineoplastic chemotherapy (principal); I10 Essential (primary) hypertension; R97.20 Elevated prostate specific antigen [PSA]; Z79.818 Long term (current) use of other agents affecting estrogen receptors and estrogen levels

== ENCOUNTER → 2024-01-16 | Outpatient (CLI) | payer OTHER ==
[2024-01-16 14:59] LABS: HEMATOCRIT 37.1 % (42.0-52.0); MEAN CELL VOLUME 90.7 fl (80.0-94.0); MEAN CORPUSCULAR HGB 28.9 pg (27.0-31.0); MEAN CORPUSCULAR HGB CONC 31.8 g/dl (33.0-37.0); MEAN PLATELET VOLUME 9.8 fl (9.6-12.3); PLATELET COUNT AUTOMATED 239 10*3/uL (130-400); RED BLOOD COUNT 4.09 10*6/uL (4.50-5.90); RED CELL DISTRI WIDTH 14.4 % (0-14.5); WHITE BLOOD COUNT 9.9 10*3/uL (4.8-10.8)
[2024-01-16 15:01] LABS: MANUAL DIFF REFLEX YES
[2024-01-16 15:19] LABS: ALKALINE PHOSPHATASE 113 U/L (46-116); BUN 8 mg/dl (9-23); CHLORIDE 105 mmol/L (98-107); POTASSIUM 4.4 mmol/L (3.4-5.1); SGPT/ALT 15 U/L (5-49); TOTAL PROTEIN 7.3 gm/dL (6.0-8.0)
[2024-01-16 16:03] LABS: BASOPHILS 3 % (0-1); TOTAL CELLS COUNTED 100 #CELLS
[2024-01-16 16:10] LABS: PLATELET SUFFICIENCY NORMAL (NORMAL)
[2024-01-16 16:11] LABS: HOWELL-JOLLY BODIES FEW
[2024-01-17 08:09] LABS: PSA, ULTRASENSITIVE 3.52 ng/mL (0.000-4.000)
== END | disposition home or self-care (01) ==
LOC: LAB 01:24
PROVIDERS: ATTEND Student in an Organized Health Care Education/Training Program
DX: Z51.11 Encounter for antineoplastic chemotherapy (principal); R97.20 Elevated prostate specific antigen [PSA]; I10 Essential (primary) hypertension; Z79.818 Long term (current) use of other agents affecting estrogen receptors and estrogen levels

== ENCOUNTER → 2024-01-23 | Outpatient (CLI) | payer OTHER ==
[2024-01-23 14:48] LABS: HEMATOCRIT 38.2 % (42.0-52.0); MEAN CELL VOLUME 93.2 fl (80.0-94.0); MEAN CORPUSCULAR HGB CONC 31.2 g/dl (33.0-37.0); MEAN PLATELET VOLUME 9.4 fl (9.6-12.3); NUCLEATED RED BLOOD CELL 0.1 10*3/uL (0.0-0.0); NUCLEATED RED BLOOD CELL 0.3 % (0.0-0.0); PLATELET COUNT AUTOMATED 228 10*3/uL (130-400); RED CELL DISTRI WIDTH 15.3 % (0-14.5); WHITE BLOOD COUNT 19.8 10*3/uL (4.8-10.8)
[2024-01-23 14:52] LABS: MANUAL DIFF REFLEX YES
[2024-01-23 15:11] LABS: PLATELET SUFFICIENCY NORMAL (NORMAL); TOTAL CELLS COUNTED 100 #CELLS
[2024-01-23 15:12] LABS: BURR CELLS FEW; POLYCHROMASIA SLIGHT
[2024-01-23 15:36] LABS: ALKALINE PHOSPHATASE 104 U/L (46-116); BUN 9 mg/dl (9-23); CHLORIDE 111 mmol/L (98-107); POTASSIUM 3.5 mmol/L (3.4-5.1); SGPT/ALT 13 U/L (5-49)
== END | disposition home or self-care (01) ==
LOC: LAB 01:34
PROVIDERS: ATTEND Student in an Organized Health Care Education/Training Program
DX: Z51.11 Encounter for antineoplastic chemotherapy (principal); R97.20 Elevated prostate specific antigen [PSA]; I10 Essential (primary) hypertension; Z79.818 Long term (current) use of other agents affecting estrogen receptors and estrogen levels

== ENCOUNTER → 2024-01-30 | Outpatient (CLI) | payer OTHER ==
[2024-01-30 10:24] LABS: BASO # 0.1 10*3/uL (0.0-0.1); BASO % 0.7 % (0.0-1.0); EOS % 0.1 % (1.0-4.0); LYMPH % 20.4 % (27.0-41.0); MEAN CELL VOLUME 95.3 fl (80.0-94.0); MEAN CORPUSCULAR HGB 28.8 pg (27.0-31.0); MEAN CORPUSCULAR HGB CONC 30.2 g/dl (33.0-37.0); MEAN PLATELET VOLUME 9.6 fl (9.6-12.3); MONO # 1.1 10*3/uL (0.1-1.0); NEUT # 6.7 10*3/uL (2.3-7.9); NEUT % 67.4 % (47.0-73.0); PLATELET COUNT AUTOMATED 264 10*3/uL (130-400); RED CELL DISTRI WIDTH 15.5 % (0-14.5); WHITE BLOOD COUNT 9.9 10*3/uL (4.8-10.8)
[2024-01-30 10:47] LABS: ALKALINE PHOSPHATASE 71 U/L (46-116); BUN 7 mg/dl (9-23); CHLORIDE 107 mmol/L (98-107); POTASSIUM 4.2 mmol/L (3.4-5.1); SGPT/ALT 16 U/L (5-49); TOTAL PROTEIN 7.3 gm/dL (6.0-8.0)
== END | disposition home or self-care (01) ==
LOC: LAB 01:27
PROVIDERS: ATTEND Student in an Organized Health Care Education/Training Program
DX: Z51.11 Encounter for antineoplastic chemotherapy (principal); R97.20 Elevated prostate specific antigen [PSA]; I10 Essential (primary) hypertension; Z79.818 Long term (current) use of other agents affecting estrogen receptors and estrogen levels

== ENCOUNTER → 2024-02-07 | Outpatient (CLI) | payer OTHER ==
[2024-02-07 09:28] LABS: HEMATOCRIT 39.2 % (42.0-52.0); MEAN CELL VOLUME 91.2 fl (80.0-94.0); MEAN CORPUSCULAR HGB 29.1 pg (27.0-31.0); MEAN CORPUSCULAR HGB CONC 31.9 g/dl (33.0-37.0); MEAN PLATELET VOLUME 10.5 fl (9.6-12.3); PLATELET COUNT AUTOMATED 264 10*3/uL (130-400); RED CELL DISTRI WIDTH 15.3 % (0-14.5); WHITE BLOOD COUNT 15.5 10*3/uL (4.8-10.8)
[2024-02-07 09:40] LABS: MANUAL DIFF REFLEX YES
[2024-02-07 09:42] LABS: ALKALINE PHOSPHATASE 114 U/L (46-116); BUN 7 mg/dl (9-23); CHLORIDE 108 mmol/L (98-107); POTASSIUM 3.5 mmol/L (3.4-5.1); SGPT/ALT 8 U/L (5-49); TOTAL PROTEIN 7.3 gm/dL (6.0-8.0)
[2024-02-07 09:44] LABS: ATYPICAL LYMPHS 1 % (0-0); TOTAL CELLS COUNTED 100 #CELLS
[2024-02-07 09:45] LABS: OVALOCYTES FEW; PLATELET SUFFICIENCY NORMAL (NORMAL)
== END | disposition home or self-care (01) ==
LOC: LAB 02-06 02:36
PROVIDERS: ATTEND Student in an Organized Health Care Education/Training Program
DX: Z51.11 Encounter for antineoplastic chemotherapy (principal); I10 Essential (primary) hypertension; Z79.818 Long term (current) use of other agents affecting estrogen receptors and estrogen levels; R97.20 Elevated prostate specific antigen [PSA]

== ENCOUNTER → 2024-02-14 | Outpatient (CLI) | payer OTHER ==
[2024-02-14 10:17] LABS: BASO % 0.2 % (0.0-1.0); EOS % 0.1 % (1.0-4.0); HEMATOCRIT 39.6 % (42.0-52.0); LYMPH # 1.5 10*3/uL (1.3-4.4); LYMPH % 8.9 % (27.0-41.0); MEAN CORPUSCULAR HGB 29.3 pg (27.0-31.0); MEAN CORPUSCULAR HGB CONC 31.6 g/dl (33.0-37.0); MEAN PLATELET VOLUME 9.5 fl (9.6-12.3); MONO # 0.6 10*3/uL (0.1-1.0); MONO % 3.7 % (3.0-9.0); NEUT # 14.2 10*3/uL (2.3-7.9); NUCLEATED RED BLOOD CELL 0.1 % (0.0-0.0); PLATELET COUNT AUTOMATED 251 10*3/uL (130-400); RED BLOOD COUNT 4.26 10*6/uL (4.50-5.90); WHITE BLOOD COUNT 16.5 10*3/uL (4.8-10.8)
[2024-02-14 11:06] LABS: ALKALINE PHOSPHATASE 102 U/L (46-116); BUN 7 mg/dl (9-23); CHLORIDE 109 mmol/L (98-107); POTASSIUM 3.7 mmol/L (3.4-5.1); SGPT/ALT 9 U/L (5-49); TOTAL PROTEIN 7.2 gm/dL (6.0-8.0)
== END | disposition home or self-care (01) ==
LOC: LAB 02-13 01:59
PROVIDERS: ATTEND Student in an Organized Health Care Education/Training Program
DX: Z51.11 Encounter for antineoplastic chemotherapy (principal); I10 Essential (primary) hypertension; R97.20 Elevated prostate specific antigen [PSA]; Z79.818 Long term (current) use of other agents affecting estrogen receptors and estrogen levels

== ENCOUNTER → 2024-02-27 | Outpatient (CLI) | payer OTHER ==
[2024-02-27 15:05] LABS: HEMATOCRIT 34.9 % (42.0-52.0); MEAN CELL VOLUME 94.6 fl (80.0-94.0); MEAN CORPUSCULAR HGB 29.5 pg (27.0-31.0); MEAN CORPUSCULAR HGB CONC 31.2 g/dl (33.0-37.0); PLATELET COUNT AUTOMATED 226 10*3/uL (130-400); RED BLOOD COUNT 3.69 10*6/uL (4.50-5.90); RED CELL DISTRI WIDTH 15.1 % (0-14.5); WHITE BLOOD COUNT 9.1 10*3/uL (4.8-10.8)
[2024-02-27 15:11] LABS: MANUAL DIFF REFLEX YES
[2024-02-27 15:35] LABS: ALKALINE PHOSPHATASE 113 U/L (46-116); BUN 6 mg/dl (9-23); CHLORIDE 107 mmol/L (98-107); POTASSIUM 3.8 mmol/L (3.4-5.1); SGPT/ALT 10 U/L (5-49); TOTAL PROTEIN 6.6 gm/dL (6.0-8.0)
[2024-02-27 15:51] LABS: ATYPICAL LYMPHS 1 % (0-0); BASOPHILS 1 % (0-1); PLATELET SUFFICIENCY NORMAL (NORMAL); TOTAL CELLS COUNTED 100 #CELLS
[2024-02-28 08:09] LABS: PSA, ULTRASENSITIVE 3.21 ng/mL (0.000-4.000)
== END | disposition home or self-care (01) ==
LOC: LAB 01:10
PROVIDERS: ATTEND Student in an Organized Health Care Education/Training Program
DX: Z51.11 Encounter for antineoplastic chemotherapy (principal); R97.20 Elevated prostate specific antigen [PSA]; I10 Essential (primary) hypertension; Z79.818 Long term (current) use of other agents affecting estrogen receptors and estrogen levels

== ENCOUNTER → 2024-03-05 | Outpatient (CLI) | payer OTHER ==
[2024-03-05 12:25] LABS: MEAN CORPUSCULAR HGB 30.5 pg (27.0-31.0); MEAN CORPUSCULAR HGB CONC 30.8 g/dl (33.0-37.0); MEAN PLATELET VOLUME 9.6 fl (9.6-12.3); NUCLEATED RED BLOOD CELL 0.1 10*3/uL (0.0-0.0); NUCLEATED RED BLOOD CELL 0.2 % (0.0-0.0); PLATELET COUNT AUTOMATED 258 10*3/uL (130-400); RED BLOOD COUNT 3.94 10*6/uL (4.50-5.90); RED CELL DISTRI WIDTH 15.9 % (0-14.5); WHITE BLOOD COUNT 23.2 10*3/uL (4.8-10.8)
[2024-03-05 12:26] LABS: MANUAL DIFF REFLEX YES
[2024-03-05 12:42] LABS: TOTAL CELLS COUNTED 100 #CELLS
[2024-03-05 12:43] LABS: PLATELET SUFFICIENCY NORMAL (NORMAL); POLYCHROMASIA SLIGHT; TOXIC GRANULATION SLIGHT; VACUOLATION OF NEUTROPHILS SLIGHT
[2024-03-05 12:49] LABS: ALKALINE PHOSPHATASE 114 U/L (46-116); BUN 6 mg/dl (9-23); CHLORIDE 109 mmol/L (98-107); SGPT/ALT 9 U/L (5-49); TOTAL PROTEIN 6.9 gm/dL (6.0-8.0)
[2024-03-06 08:10] LABS: PSA, ULTRASENSITIVE 3.57 ng/mL (0.000-4.000)
== END | disposition home or self-care (01) ==
LOC: LAB 01:13
PROVIDERS: ATTEND Student in an Organized Health Care Education/Training Program
DX: Z51.11 Encounter for antineoplastic chemotherapy (principal); I10 Essential (primary) hypertension; R97.20 Elevated prostate specific antigen [PSA]; Z79.818 Long term (current) use of other agents affecting estrogen receptors and estrogen levels

== ENCOUNTER → 2024-03-15 | Outpatient (CLI) | payer OTHER | END | disposition home or self-care (01) | LOC: US 11:24 | PROVIDERS: ATTEND Student in an Organized Health Care Education/Training Program | DX: R60.9 Edema, unspecified (principal); R07.9 Chest pain, unspecified; Z72.0 Tobacco use ==

== ENCOUNTER → 2024-03-20 | Outpatient (CLI) | payer OTHER ==
[2024-03-20 15:14] LABS: HEMATOCRIT 36.1 % (42.0-52.0); MANUAL DIFF REFLEX YES; MEAN CELL VOLUME 96.8 fl (80.0-94.0); MEAN CORPUSCULAR HGB 30.8 pg (27.0-31.0); MEAN CORPUSCULAR HGB CONC 31.9 g/dl (33.0-37.0); MEAN PLATELET VOLUME 10.1 fl (9.6-12.3); NUCLEATED RED BLOOD CELL 0.2 % (0.0-0.0); PLATELET COUNT AUTOMATED 240 10*3/uL (130-400); RED BLOOD COUNT 3.73 10*6/uL (4.50-5.90); RED CELL DISTRI WIDTH 14.8 % (0-14.5); WHITE BLOOD COUNT 19.5 10*3/uL (4.8-10.8)
[2024-03-20 15:38] LABS: BASOPHILS 1 % (0-1); TOTAL CELLS COUNTED 100 #CELLS
[2024-03-20 15:39] LABS: ALKALINE PHOSPHATASE 119 U/L (46-116); BUN 6 mg/dl (9-23); BURR CELLS FEW; CHLORIDE 105 mmol/L (98-107); PLATELET SUFFICIENCY NORMAL (NORMAL); POLYCHROMASIA SLIGHT; POTASSIUM 4.7 mmol/L (3.4-5.1); SGPT/ALT 8 U/L (5-49); TARGET CELLS FEW; TOTAL PROTEIN 7.1 gm/dL (6.0-8.0)
== END | disposition home or self-care (01) ==
LOC: LAB 03-19 09:53
PROVIDERS: ATTEND Student in an Organized Health Care Education/Training Program
DX: Z51.11 Encounter for antineoplastic chemotherapy (principal); I10 Essential (primary) hypertension; Z79.818 Long term (current) use of other agents affecting estrogen receptors and estrogen levels; R97.20 Elevated prostate specific antigen [PSA]

== ENCOUNTER → 2024-03-27 | Outpatient (CLI) | payer OTHER ==
[2024-03-27 10:05] LABS: HEMATOCRIT 40.5 % (42.0-52.0); MEAN CELL VOLUME 98.1 fl (80.0-94.0); MEAN CORPUSCULAR HGB 30.8 pg (27.0-31.0); MEAN CORPUSCULAR HGB CONC 31.4 g/dl (33.0-37.0); MEAN PLATELET VOLUME 9.7 fl (9.6-12.3); NUCLEATED RED BLOOD CELL 0.3 % (0.0-0.0); PLATELET COUNT AUTOMATED 255 10*3/uL (130-400); RED BLOOD COUNT 4.13 10*6/uL (4.50-5.90); RED CELL DISTRI WIDTH 15.2 % (0-14.5); WHITE BLOOD COUNT 15.5 10*3/uL (4.8-10.8)
[2024-03-27 10:12] LABS: MANUAL DIFF REFLEX YES
[2024-03-27 10:25] LABS: PLATELET SUFFICIENCY NORMAL (NORMAL); POLYCHROMASIA SLIGHT; TOTAL CELLS COUNTED 100 #CELLS; TOXIC GRANULATION SLIGHT; VACUOLATION OF NEUTROPHILS SLIGHT
[2024-03-27 11:02] LABS: ALKALINE PHOSPHATASE 98 U/L (46-116); BUN 7 mg/dl (9-23); CHLORIDE 108 mmol/L (98-107); POTASSIUM 3.7 mmol/L (3.4-5.1); SGPT/ALT 9 U/L (5-49); TOTAL PROTEIN 6.8 gm/dL (6.0-8.0)
[2024-03-28 04:06] LABS: PSA, ULTRASENSITIVE 3.35 ng/mL (0.000-4.000)
== END | disposition home or self-care (01) ==
LOC: LAB 03-26 02:02
PROVIDERS: ATTEND Student in an Organized Health Care Education/Training Program
DX: Z51.11 Encounter for antineoplastic chemotherapy (principal); I10 Essential (primary) hypertension; R97.20 Elevated prostate specific antigen [PSA]; Z79.818 Long term (current) use of other agents affecting estrogen receptors and estrogen levels

== ENCOUNTER → 2024-04-09 | Outpatient (CLI) | payer OTHER ==
[2024-04-09 15:22] LABS: HEMATOCRIT 36.6 % (42.0-52.0); MEAN CELL VOLUME 97.6 fl (80.0-94.0); MEAN CORPUSCULAR HGB 30.4 pg (27.0-31.0); MEAN CORPUSCULAR HGB CONC 31.1 g/dl (33.0-37.0); MEAN PLATELET VOLUME 10.7 fl (9.6-12.3); PLATELET COUNT AUTOMATED 172 10*3/uL (130-400); RED BLOOD COUNT 3.75 10*6/uL (4.50-5.90); RED CELL DISTRI WIDTH 14.8 % (0-14.5); WHITE BLOOD COUNT 8.2 10*3/uL (4.8-10.8)
[2024-04-09 15:28] LABS: MANUAL DIFF REFLEX YES
[2024-04-09 15:40] LABS: ALKALINE PHOSPHATASE 109 U/L (46-116); BUN 9 mg/dl (9-23); CHLORIDE 105 mmol/L (98-107); POTASSIUM 3.8 mmol/L (3.4-5.1); SGPT/ALT 7 U/L (5-49); TOTAL PROTEIN 6.7 gm/dL (6.0-8.0)
[2024-04-09 15:55] LABS: BASOPHILS 1 % (0-1); TOTAL CELLS COUNTED 100 #CELLS
[2024-04-09 15:57] LABS: PLATELET SUFFICIENCY NORMAL (NORMAL)
== END | disposition home or self-care (01) ==
LOC: LAB 01:09
PROVIDERS: ATTEND Student in an Organized Health Care Education/Training Program
DX: Z51.11 Encounter for antineoplastic chemotherapy (principal); R97.20 Elevated prostate specific antigen [PSA]; I10 Essential (primary) hypertension; Z79.818 Long term (current) use of other agents affecting estrogen receptors and estrogen levels

== ENCOUNTER → 2024-04-16 | Outpatient (CLI) | payer OTHER ==
[2024-04-16 14:30] LABS: MEAN CELL VOLUME 97.1 fl (80.0-94.0); MEAN CORPUSCULAR HGB 30.8 pg (27.0-31.0); MEAN CORPUSCULAR HGB CONC 31.8 g/dl (33.0-37.0); MEAN PLATELET VOLUME 9.6 fl (9.6-12.3); NUCLEATED RED BLOOD CELL 0.1 10*3/uL (0.0-0.0); NUCLEATED RED BLOOD CELL 0.2 % (0.0-0.0); PLATELET COUNT AUTOMATED 260 10*3/uL (130-400); RED BLOOD COUNT 4.12 10*6/uL (4.50-5.90); RED CELL DISTRI WIDTH 14.9 % (0-14.5); WHITE BLOOD COUNT 30.4 10*3/uL (4.8-10.8)
[2024-04-16 14:33] LABS: MANUAL DIFF REFLEX YES
[2024-04-16 14:55] LABS: ALKALINE PHOSPHATASE 106 U/L (46-116); BUN 11 mg/dl (9-23); CHLORIDE 107 mmol/L (98-107); POTASSIUM 4.3 mmol/L (3.4-5.1); SGPT/ALT 8 U/L (5-49); TOTAL PROTEIN 6.9 gm/dL (6.0-8.0)
[2024-04-16 15:00] LABS: PLATELET SUFFICIENCY NORMAL (NORMAL); TOTAL CELLS COUNTED 100 #CELLS
[2024-04-16 15:01] LABS: BURR CELLS FEW; OVALOCYTES FEW; POLYCHROMASIA SLIGHT
== END | disposition home or self-care (01) ==
LOC: LAB 01:20
PROVIDERS: ATTEND Student in an Organized Health Care Education/Training Program
DX: I10 Essential (primary) hypertension (principal); R97.20 Elevated prostate specific antigen [PSA]; Z51.11 Encounter for antineoplastic chemotherapy; Z79.818 Long term (current) use of other agents affecting estrogen receptors and estrogen levels

== ENCOUNTER → 2024-04-30 | Outpatient (CLI) | payer OTHER ==
[2024-04-30 14:55] LABS: HEMATOCRIT 36.5 % (42.0-52.0); MEAN CELL VOLUME 97.6 fl (80.0-94.0); MEAN CORPUSCULAR HGB 30.5 pg (27.0-31.0); MEAN CORPUSCULAR HGB CONC 31.2 g/dl (33.0-37.0); MEAN PLATELET VOLUME 10.2 fl (9.6-12.3); PLATELET COUNT AUTOMATED 141 10*3/uL (130-400); RED BLOOD COUNT 3.74 10*6/uL (4.50-5.90); RED CELL DISTRI WIDTH 14.7 % (0-14.5); WHITE BLOOD COUNT 10.4 10*3/uL (4.8-10.8)
[2024-04-30 14:58] LABS: MANUAL DIFF REFLEX YES
[2024-04-30 15:28] LABS: ALKALINE PHOSPHATASE 105 U/L (46-116); BUN 6 mg/dl (9-23); CHLORIDE 107 mmol/L (98-107); POTASSIUM 3.8 mmol/L (3.4-5.1); SGPT/ALT 8 U/L (5-49); TOTAL PROTEIN 6.4 gm/dL (6.0-8.0)
[2024-04-30 15:58] LABS: BASOPHILS 1 % (0-1); TOTAL CELLS COUNTED 100 #CELLS
[2024-04-30 16:01] LABS: PLATELET SUFFICIENCY NORMAL (NORMAL)
== END | disposition home or self-care (01) ==
LOC: LAB 02:41
PROVIDERS: ATTEND Student in an Organized Health Care Education/Training Program
DX: Z51.11 Encounter for antineoplastic chemotherapy (principal); I10 Essential (primary) hypertension; R97.20 Elevated prostate specific antigen [PSA]; Z79.818 Long term (current) use of other agents affecting estrogen receptors and estrogen levels

== ENCOUNTER → 2024-05-07 | Outpatient (CLI) | payer OTHER ==
[2024-05-07 14:58] LABS: BASO # 0.1 10*3/uL (0.0-0.1); BASO % 0.3 % (0.0-1.0); HEMATOCRIT 37.7 % (42.0-52.0); LYMPH # 2.7 10*3/uL (1.3-4.4); LYMPH % 14.6 % (27.0-41.0); MEAN CELL VOLUME 97.2 fl (80.0-94.0); MEAN CORPUSCULAR HGB 30.7 pg (27.0-31.0); MEAN CORPUSCULAR HGB CONC 31.6 g/dl (33.0-37.0); MEAN PLATELET VOLUME 9.6 fl (9.6-12.3); MONO % 5.6 % (3.0-9.0); NEUT # 13.9 10*3/uL (2.3-7.9); NEUT % 76.2 % (47.0-73.0); NUCLEATED RED BLOOD CELL 0.1 10*3/uL (0.0-0.0); NUCLEATED RED BLOOD CELL 0.4 % (0.0-0.0); PLATELET COUNT AUTOMATED 240 10*3/uL (130-400); RED BLOOD COUNT 3.88 10*6/uL (4.50-5.90); RED CELL DISTRI WIDTH 15.6 % (0-14.5); WHITE BLOOD COUNT 18.3 10*3/uL (4.8-10.8)
[2024-05-07 15:22] LABS: ALKALINE PHOSPHATASE 90 U/L (46-116); BUN 7 mg/dl (9-23); CHLORIDE 111 mmol/L (98-107); POTASSIUM 3.8 mmol/L (3.4-5.1); TOTAL PROTEIN 6.2 gm/dL (6.0-8.0)
[2024-05-07 15:24] LABS: SGPT/ALT < 7 U/L (5-49)
[2024-05-07 15:27] LABS: PLATELET SUFFICIENCY NORMAL (NORMAL); TOTAL CELLS COUNTED 100 #CELLS
[2024-05-08 08:10] LABS: PSA, ULTRASENSITIVE 3.16 ng/mL (0.000-4.000)
== END | disposition home or self-care (01) ==
LOC: LAB 00:16
PROVIDERS: ATTEND Student in an Organized Health Care Education/Training Program
DX: Z51.11 Encounter for antineoplastic chemotherapy (principal); I10 Essential (primary) hypertension; R97.20 Elevated prostate specific antigen [PSA]; Z79.818 Long term (current) use of other agents affecting estrogen receptors and estrogen levels

== ENCOUNTER → 2024-05-21 | Outpatient (CLI) | payer OTHER ==
[2024-05-21 14:40] LABS: HEMATOCRIT 33.5 % (42.0-52.0); MEAN CELL VOLUME 94.9 fl (80.0-94.0); MEAN CORPUSCULAR HGB 30.9 pg (27.0-31.0); MEAN CORPUSCULAR HGB CONC 32.5 g/dl (33.0-37.0); MEAN PLATELET VOLUME 10.3 fl (9.6-12.3); PLATELET COUNT AUTOMATED 153 10*3/uL (130-400); RED BLOOD COUNT 3.53 10*6/uL (4.50-5.90); RED CELL DISTRI WIDTH 14.6 % (0-14.5); WHITE BLOOD COUNT 9.3 10*3/uL (4.8-10.8)
[2024-05-21 14:47] LABS: MANUAL DIFF REFLEX YES
[2024-05-21 15:12] LABS: ALKALINE PHOSPHATASE 94 U/L (46-116); BUN 8 mg/dl (9-23); CHLORIDE 109 mmol/L (98-107); POTASSIUM 3.8 mmol/L (3.4-5.1); SGPT/ALT 7 U/L (5-49); TOTAL PROTEIN 6.2 gm/dL (6.0-8.0)
[2024-05-21 15:36] LABS: PLATELET SUFFICIENCY NORMAL (NORMAL); TOTAL CELLS COUNTED 100 #CELLS
== END | disposition home or self-care (01) ==
LOC: LAB 01:05
PROVIDERS: ATTEND Student in an Organized Health Care Education/Training Program
DX: I10 Essential (primary) hypertension (principal); Z51.11 Encounter for antineoplastic chemotherapy; R97.20 Elevated prostate specific antigen [PSA]; Z79.818 Long term (current) use of other agents affecting estrogen receptors and estrogen levels

== ENCOUNTER → 2024-05-29 | Outpatient (CLI) | payer OTHER ==
[2024-05-29 09:46] LABS: BASO % 0.4 % (0.0-1.0); HEMATOCRIT 40.2 % (42.0-52.0); LYMPH # 1.9 10*3/uL (1.3-4.4); LYMPH % 20.3 % (27.0-41.0); MEAN CELL VOLUME 99.3 fl (80.0-94.0); MEAN CORPUSCULAR HGB 30.4 pg (27.0-31.0); MEAN CORPUSCULAR HGB CONC 30.6 g/dl (33.0-37.0); MEAN PLATELET VOLUME 9.5 fl (9.6-12.3); MONO # 0.7 10*3/uL (0.1-1.0); MONO % 7.3 % (3.0-9.0); NEUT # 6.5 10*3/uL (2.3-7.9); NEUT % 70.7 % (47.0-73.0); NUCLEATED RED BLOOD CELL 0.2 % (0.0-0.0); PLATELET COUNT AUTOMATED 244 10*3/uL (130-400); RED BLOOD COUNT 4.05 10*6/uL (4.50-5.90); RED CELL DISTRI WIDTH 14.8 % (0-14.5); WHITE BLOOD COUNT 9.1 10*3/uL (4.8-10.8)
[2024-05-29 10:16] LABS: ALKALINE PHOSPHATASE 83 U/L (46-116); BUN 5 mg/dl (9-23); CHLORIDE 111 mmol/L (98-107); TOTAL PROTEIN 6.2 gm/dL (6.0-8.0)
[2024-05-29 10:22] LABS: SGPT/ALT < 7 U/L (5-49)
== END | disposition home or self-care (01) ==
LOC: LAB 05-28 01:51
PROVIDERS: ATTEND Student in an Organized Health Care Education/Training Program
DX: Z51.11 Encounter for antineoplastic chemotherapy (principal); I10 Essential (primary) hypertension; R97.20 Elevated prostate specific antigen [PSA]; Z79.818 Long term (current) use of other agents affecting estrogen receptors and estrogen levels

== ENCOUNTER → 2024-06-11 | Outpatient (CLI) | payer OTHER ==
[2024-06-11 10:00] LABS: HEMATOCRIT 37.1 % (42.0-52.0); MEAN CELL VOLUME 95.9 fl (80.0-94.0); MEAN CORPUSCULAR HGB 30.5 pg (27.0-31.0); MEAN CORPUSCULAR HGB CONC 31.8 g/dl (33.0-37.0); MEAN PLATELET VOLUME 10.1 fl (9.6-12.3); PLATELET COUNT AUTOMATED 181 10*3/uL (130-400); RED BLOOD COUNT 3.87 10*6/uL (4.50-5.90); RED CELL DISTRI WIDTH 14.6 % (0-14.5); WHITE BLOOD COUNT 9.5 10*3/uL (4.8-10.8)
[2024-06-11 10:01] LABS: MANUAL DIFF REFLEX YES
[2024-06-11 10:46] LABS: ALKALINE PHOSPHATASE 81 U/L (46-116); BUN 8 mg/dl (9-23); CHLORIDE 109 mmol/L (98-107); TOTAL PROTEIN 6.4 gm/dL (6.0-8.0)
[2024-06-11 10:52] LABS: SGPT/ALT < 7 U/L (5-49)
[2024-06-11 11:22] LABS: ATYPICAL LYMPHS 2 % (0-0); MICROCYTOSIS SLIGHT; PLATELET SUFFICIENCY NORMAL (NORMAL); TOTAL CELLS COUNTED 97 #CELLS
== END | disposition home or self-care (01) ==
LOC: LAB 00:06
PROVIDERS: ATTEND Student in an Organized Health Care Education/Training Program
DX: Z51.11 Encounter for antineoplastic chemotherapy (principal); I10 Essential (primary) hypertension; R97.20 Elevated prostate specific antigen [PSA]; Z79.818 Long term (current) use of other agents affecting estrogen receptors and estrogen levels

== ENCOUNTER → 2024-06-18 | Outpatient (CLI) | payer OTHER ==
[2024-06-18 10:12] LABS: HEMATOCRIT 39.2 % (42.0-52.0); MEAN CELL VOLUME 98.2 fl (80.0-94.0); MEAN CORPUSCULAR HGB 30.6 pg (27.0-31.0); MEAN CORPUSCULAR HGB CONC 31.1 g/dl (33.0-37.0); MEAN PLATELET VOLUME 9.8 fl (9.6-12.3); NUCLEATED RED BLOOD CELL 0.2 % (0.0-0.0); PLATELET COUNT AUTOMATED 280 10*3/uL (130-400); RED BLOOD COUNT 3.99 10*6/uL (4.50-5.90); RED CELL DISTRI WIDTH 14.5 % (0-14.5); WHITE BLOOD COUNT 12.3 10*3/uL (4.8-10.8)
[2024-06-18 10:15] LABS: MANUAL DIFF REFLEX YES
[2024-06-18 10:46] LABS: ALKALINE PHOSPHATASE 72 U/L (46-116); BUN 10 mg/dl (9-23); CHLORIDE 108 mmol/L (98-107); POTASSIUM 3.9 mmol/L (3.4-5.1); SGPT/ALT 7 U/L (5-49); TOTAL PROTEIN 6.3 gm/dL (6.0-8.0)
[2024-06-18 10:59] LABS: BURR CELLS FEW; OVALOCYTES FEW; PLATELET SUFFICIENCY NORMAL (NORMAL); POLYCHROMASIA SLIGHT; SCHISTOCYTES FEW; TOTAL CELLS COUNTED 100 #CELLS
== END | disposition home or self-care (01) ==
LOC: LAB 00:13
PROVIDERS: ATTEND Student in an Organized Health Care Education/Training Program
DX: I10 Essential (primary) hypertension (principal); Z51.11 Encounter for antineoplastic chemotherapy; R97.20 Elevated prostate specific antigen [PSA]; Z79.818 Long term (current) use of other agents affecting estrogen receptors and estrogen levels

== ENCOUNTER → 2024-06-20 | Outpatient (CLI) | payer OTHER | END | disposition home or self-care (01) | LOC: US 09:30 | PROVIDERS: ATTEND Urology | DX: N28.1 Cyst of kidney, acquired (principal); R10.31 Right lower quadrant pain; J18.9 Pneumonia, unspecified organism; D64.9 Anemia, unspecified ==

== ENCOUNTER 2024-09-08 04:56 | Emergency (ER) | payer OTHER ==
[~2024-09-08] VITALS: Ht 187.9 cm; Wt 92.8 kg
[2024-09-08 05:13] VITALS: BP 109/85
[2024-09-08] MEDS ORDERED: methylPREDNISolone sod succ 125 MG VIAL IV ONE (05:25)
[2024-09-08] MEDS ORDERED: diphenhydrAMINE hydrochloride 50 MG/ML VIAL IV ONE (05:25)
[2024-09-08] MEDS ORDERED: FAMOTIDINE 50 ML IV ONE ×2 (05:25)
[2024-09-08] MEDS ORDERED: BENADRYL ALLERG25 M5 PO (06:43)
[2024-09-08] MEDS ORDERED: CEFADROXIL500 M1 PO (06:43)
[2024-09-10] MEDS ORDERED: OXYCODONE HCL10 M1 PO (05:43)
[2024-09-10] MEDS ORDERED: BUMETANIDE1 MG PO (05:44)
[2024-09-10] MEDS ORDERED: CYMBALTA30 MG PO (05:45)
[2024-09-10] MEDS ORDERED: IRON325 M1 PO (05:46)
== END 2024-09-08 06:39 | disposition home or self-care (01) ==
LOC: ED 04:56
DX: L50.9 Urticaria, unspecified (principal); F41.9 Anxiety disorder, unspecified; F32.A Depression, unspecified; Z88.2 Allergy status to sulfonamides; Z88.1 Allergy status to other antibiotic agents; Z88.8 Allergy status to other drugs, medicaments and biological substances; Z98.890 Other specified postprocedural states

== ENCOUNTER → 2024-12-04 | Outpatient (CLI) | payer OTHER ==
[~2024-12-04] MED LIST changes: +BUMETANIDE1 MG PO; +CEFADROXIL500 M1 PO; +CYMBALTA30 MG PO; +IRON325 M1 PO; +OXYCODONE HCL10 M1 PO
[2024-12-04 10:54] LABS: BASO # 0.1 10*3/uL (0.0-0.1); EOS # 0.1 10*3/uL (0.0-0.4); EOS % 1.1 % (1.0-4.0); MEAN CELL VOLUME 91.7 fl (80.0-94.0); MEAN CORPUSCULAR HGB 28.6 pg (27.0-31.0); MEAN CORPUSCULAR HGB CONC 31.2 g/dl (33.0-37.0); MEAN PLATELET VOLUME 9.4 fl (9.6-12.3); MONO # 0.5 10*3/uL (0.1-1.0); NEUT # 3.8 10*3/uL (2.3-7.9); PLATELET COUNT AUTOMATED 217 10*3/uL (130-400); RED BLOOD COUNT 4.58 10*6/uL (4.50-5.90); RED CELL DISTRI WIDTH 14.6 % (0-14.5); WHITE BLOOD COUNT 7.2 10*3/uL (4.8-10.8)
[2024-12-04 11:03] LABS: ACT PARTIAL THROMBO TIME 28.4 SECONDS (20.0-32.1)
[2024-12-04 11:16] LABS: ALKALINE PHOSPHATASE 68 U/L (46-116); BUN 8 mg/dl (9-23); CHLORIDE 108 mmol/L (98-107); POTASSIUM 3.7 mmol/L (3.4-5.1); SGPT/ALT 13 U/L (5-49); TOTAL PROTEIN 7.4 gm/dL (6.0-8.0)
== END | disposition home or self-care (01) ==
LOC: LAB 10:19
PROVIDERS: ATTEND Urology
DX: Z01.818 Encounter for other preprocedural examination (principal); J44.9 Chronic obstructive pulmonary disease, unspecified

== ENCOUNTER → 2025-01-21 | Outpatient (CLI) | payer OTHER ==
[2025-01-21 08:48] LABS: BASO # 0.1 10*3/uL (0.0-0.1); BASO % 1.1 % (0.0-1.0); EOS # 0.1 10*3/uL (0.0-0.4); EOS % 1.4 % (1.0-4.0); HEMATOCRIT 41.4 % (42.0-52.0); MEAN CORPUSCULAR HGB 28.1 pg (27.0-31.0); MEAN CORPUSCULAR HGB CONC 30.2 g/dl (33.0-37.0); MEAN PLATELET VOLUME 9.1 fl (9.6-12.3); MONO # 0.4 10*3/uL (0.1-1.0); MONO % 6.1 % (3.0-9.0); NEUT # 3.9 10*3/uL (2.3-7.9); NEUT % 62.9 % (47.0-73.0); PLATELET COUNT AUTOMATED 241 10*3/uL (130-400); RED BLOOD COUNT 4.45 10*6/uL (4.50-5.90); RED CELL DISTRI WIDTH 13.9 % (0-14.5); WHITE BLOOD COUNT 6.2 10*3/uL (4.8-10.8)
[2025-01-21 09:11] LABS: ALKALINE PHOSPHATASE 66 U/L (46-116); BUN 11 mg/dl (9-23); CHLORIDE 112 mmol/L (98-107); POTASSIUM 4.2 mmol/L (3.4-5.1); SGPT/ALT 8 U/L (5-49); TOTAL PROTEIN 6.8 gm/dL (6.0-8.0)
== END | disposition home or self-care (01) ==
LOC: LAB 08:21
PROVIDERS: ATTEND Urology
DX: C61 Malignant neoplasm of prostate (principal); R53.83 Other fatigue

== ENCOUNTER → 2025-03-20 | Outpatient (CLI) | payer OTHER | END | disposition home or self-care (01) | LOC: LAB 08:07 | PROVIDERS: ATTEND Internal Medicine Hematology & Oncology | DX: C79.51 Secondary malignant neoplasm of bone (principal); E55.9 Vitamin D deficiency, unspecified ==

== ENCOUNTER → 2025-04-18 | Outpatient (CLI) | payer OTHER ==
[2025-04-18 10:25] LABS: BASO # 0.1 10*3/uL (0.0-0.1); BASO % 0.7 % (0.0-1.0); EOS # 0.1 10*3/uL (0.0-0.4); HEMATOCRIT 41.5 % (42.0-52.0); MEAN CELL VOLUME 91.6 fl (80.0-94.0); MEAN CORPUSCULAR HGB CONC 30.6 g/dl (33.0-37.0); MEAN PLATELET VOLUME 9.2 fl (9.6-12.3); MONO # 0.5 10*3/uL (0.1-1.0); MONO % 6.9 % (3.0-9.0); NEUT # 4.3 10*3/uL (2.3-7.9); NEUT % 59.4 % (47.0-73.0); PLATELET COUNT AUTOMATED 232 10*3/uL (130-400); RED BLOOD COUNT 4.53 10*6/uL (4.50-5.90); RED CELL DISTRI WIDTH 14.1 % (0-14.5); WHITE BLOOD COUNT 7.3 10*3/uL (4.8-10.8)
[2025-04-18 11:07] LABS: ALKALINE PHOSPHATASE 50 U/L (46-116); BUN 9 mg/dl (9-23); CHLORIDE 109 mmol/L (98-107); SGPT/ALT 8 U/L (5-49)
[2025-04-18 11:16] LABS: VITAMIN D, 25-HYDROXY 28.8 ng/mL (30-100)
== END | disposition home or self-care (01) ==
LOC: LAB 09:53
PROVIDERS: ATTEND Internal Medicine Hematology & Oncology
DX: C61 Malignant neoplasm of prostate (principal)

== ENCOUNTER → 2025-05-15 | Outpatient (CLI) | payer OTHER ==
[2025-05-15 09:05] LABS: BASO # 0.1 10*3/uL (0.0-0.1); BASO % 0.7 % (0.0-1.0); EOS # 0.1 10*3/uL (0.0-0.4); EOS % 0.9 % (1.0-4.0); MEAN CELL VOLUME 93.2 fl (80.0-94.0); MEAN CORPUSCULAR HGB 28.4 pg (27.0-31.0); MEAN PLATELET VOLUME 9.5 fl (9.6-12.3); MONO # 0.5 10*3/uL (0.1-1.0); MONO % 6.2 % (3.0-9.0); NEUT # 3.3 10*3/uL (2.3-7.9); NEUT % 43.3 % (47.0-73.0); NUCLEATED RED BLOOD CELL 0.0 % (0.0-0.0); NUCLEATED RED BLOOD CELL 0.0 10*3/uL (0.0-0.0); PLATELET COUNT AUTOMATED 215 10*3/uL (130-400); RED CELL DISTRI WIDTH 13.9 % (0-14.5)
[2025-05-15 09:39] LABS: BUN 10 mg/dl (9-23); SGPT/ALT 9 U/L (5-49)
[2025-05-15 09:42] LABS: VITAMIN D, 25-HYDROXY 42.2 ng/mL (30-100)
== END ==
LOC: LAB 08:39
PROVIDERS: ATTEND Internal Medicine Hematology & Oncology
DX: C61 Malignant neoplasm of prostate (principal); E55.9 Vitamin D deficiency, unspecified

== ENCOUNTER → 2025-06-11 | Outpatient (CLI) | payer OTHER ==
[2025-06-11 09:20] LABS: BASO # 0.1 10*3/uL (0.0-0.1); BASO % 0.9 % (0.0-1.0); EOS # 0.1 10*3/uL (0.0-0.4); EOS % 1.5 % (1.0-4.0); MEAN CELL VOLUME 93.9 fl (80.0-94.0); MEAN CORPUSCULAR HGB 28.8 pg (27.0-31.0); MEAN PLATELET VOLUME 9.6 fl (9.6-12.3); MONO # 0.7 10*3/uL (0.1-1.0); MONO % 8.7 % (3.0-9.0); NEUT # 4.3 10*3/uL (2.3-7.9); NEUT % 53.9 % (47.0-73.0); NUCLEATED RED BLOOD CELL 0.0 % (0.0-0.0); NUCLEATED RED BLOOD CELL 0.0 10*3/uL (0.0-0.0); PLATELET COUNT AUTOMATED 218 10*3/uL (130-400); RED CELL DISTRI WIDTH 14.1 % (0-14.5)
[2025-06-11 09:36] LABS: BUN 14 mg/dl (9-23); SGPT/ALT 10 U/L (5-49)
== END ==
LOC: LAB 08:40
PROVIDERS: ATTEND Internal Medicine Hematology & Oncology
DX: C61 Malignant neoplasm of prostate (principal); C79.51 Secondary malignant neoplasm of bone; E55.9 Vitamin D deficiency, unspecified

== ENCOUNTER → 2025-07-01 | Outpatient (CLI) | payer OTHER | LOC: LAB 09:15 | PROVIDERS: ATTEND Internal Medicine Hematology & Oncology | DX: C61 Malignant neoplasm of prostate (principal); C79.51 Secondary malignant neoplasm of bone; Z79.899 Other long term (current) drug therapy ==

== ENCOUNTER → 2025-07-11 | Outpatient (CLI) | payer OTHER ==
[2025-07-11 08:54] LABS: BASO # 0.1 10*3/uL (0.0-0.1); BASO % 0.8 % (0.0-1.0); EOS # 0.1 10*3/uL (0.0-0.4); EOS % 1.7 % (1.0-4.0); MEAN CELL VOLUME 91.7 fl (80.0-94.0); MEAN CORPUSCULAR HGB 28.5 pg (27.0-31.0); MEAN PLATELET VOLUME 9.2 fl (9.6-12.3); MONO # 0.7 10*3/uL (0.1-1.0); MONO % 8.5 % (3.0-9.0); NEUT # 4.3 10*3/uL (2.3-7.9); NEUT % 56.5 % (47.0-73.0); NUCLEATED RED BLOOD CELL 0.0 % (0.0-0.0); NUCLEATED RED BLOOD CELL 0.0 10*3/uL (0.0-0.0); PLATELET COUNT AUTOMATED 216 10*3/uL (130-400); RED CELL DISTRI WIDTH 13.7 % (0-14.5)
[2025-07-11 09:23] LABS: BUN 13 mg/dl (9-23); SGPT/ALT 10 U/L (5-49)
== END | disposition home or self-care (01) ==
LOC: LAB 08:33
PROVIDERS: ATTEND Internal Medicine Hematology & Oncology
DX: C61 Malignant neoplasm of prostate (principal)

== ENCOUNTER → 2025-08-09 | Outpatient (CLI) | payer OTHER | END | disposition home or self-care (01) | LOC: LAB 09:00 | PROVIDERS: ATTEND Internal Medicine Hematology & Oncology | DX: C61 Malignant neoplasm of prostate (principal); Z51.11 Encounter for antineoplastic chemotherapy; C79.51 Secondary malignant neoplasm of bone; Z79.899 Other long term (current) drug therapy ==

== ENCOUNTER → 2025-09-11 | Outpatient (CLI) | payer OTHER ==
[2025-09-11 09:52] LABS: BASO # 0.1 10*3/uL (0.0-0.1); BASO % 0.7 % (0.0-1.0); EOS # 0.1 10*3/uL (0.0-0.4); EOS % 0.9 % (1.0-4.0); MEAN CELL VOLUME 91.9 fl (80.0-94.0); MEAN CORPUSCULAR HGB 28.7 pg (27.0-31.0); MEAN PLATELET VOLUME 9.4 fl (9.6-12.3); MONO # 0.5 10*3/uL (0.1-1.0); MONO % 6.8 % (3.0-9.0); NEUT # 3.8 10*3/uL (2.3-7.9); NEUT % 57.2 % (47.0-73.0); NUCLEATED RED BLOOD CELL 0.0 % (0.0-0.0); NUCLEATED RED BLOOD CELL 0.0 10*3/uL (0.0-0.0); PLATELET COUNT AUTOMATED 216 10*3/uL (130-400); RED CELL DISTRI WIDTH 13.3 % (0-14.5)
[2025-09-11 10:15] LABS: BUN 11 mg/dl (9-23); SGPT/ALT 8 U/L (5-49)
== END | disposition home or self-care (01) ==
LOC: LAB 09:16
PROVIDERS: ATTEND Internal Medicine Hematology & Oncology
DX: C61 Malignant neoplasm of prostate (principal)